=== PATIENT | male | born 1995 | race Caucasian/White ===

== ENCOUNTER 2017-02-04 19:10 | Emergency (ER) | payer OTHER ==
[2017-02-04 19:29] VITALS: BP 119/70
--- NOTE | 2017-02-04 21:32 | Emergency Department Report ---
Entered by KULDEEP ERWIN, acting as scribe for JOSE ECHOLS PA. ED Male HPI - General Chief complaint: Medical Clearance Stated complaint: BLISTERS ON PENIS Time Seen by Provider: 02/04/17 20:11 Source: patient Mode of arrival: Ambulatory Limitations: No Limitations - History of Present Illness Initial comments: 21 year old male with no significant PMHx presents to the ED c/o a STD test today. Patient's partner is being seen in this ED currently for erythematous rashes around shaft of penis, so he wants to get tested. Denies any rashes around shaft of penis, penile discharge, dysuria, urgency, frequency, nausea, vomiting, fever, abdominal pain, and back pain. Reports having unprotected sex with 1 partner. NKDA. NORTH Complaint: other (STD test because partner has erthematous rashes around shaft of penis) -: This afternoon Radiation: none denies other symptoms. denies: discharge, swelling, dysuria, fever, nausea/ vomiting, other (SOB, urgency, frequency, chills, chest pain, back pain, and abdominal pain) - Related Data Sexually active: Yes (1 partner) Allergies Allergy/AdvReac Type Severity Reaction Status Date / Time No Known Allergies Allergy Verified 02/04/17 19:26 ED Review of Systems Comment: All other systems reviewed and negative Constitutional: denies: chills, fever, malaise Eyes: denies: eye pain ENT: denies: ear pain, throat pain, congestion Respiratory: denies: shortness of breath Cardiovascular: denies: chest pain, palpitations Endocrine: no symptoms reported Gastrointestinal: denies: abdominal pain, nausea, vomiting Genitourinary: denies: urgency, dysuria, frequency, discharge, testicular pain, testicular mass Musculoskeletal: denies: back pain Skin: denies: rash, lesions Neurological: denies: headache, weakness ED Past Medical Hx - Past Medical History Previous Medical History?: No - Surgical History Past Surgical History?: No - Social History Smoking Status: Current Every Day Smoker Substance Use Type: Alcohol ED Physical Exam - General Limitations: No Limitations General appearance: alert, in no apparent distress - Head Head exam: Present: atraumatic, normocephalic - Eye Eye exam: Present: normal appearance - ENT ENT exam: Present: normal exam, mucous membranes moist - Neck Neck exam: Present: normal inspection, full ROM. Absent: tenderness, lymphadenopathy - Respiratory Respiratory exam: Present: normal lung sounds bilaterally. Absent: respiratory distress, wheezes, rales, rhonchi, stridor - Cardiovascular Cardiovascular Exam: Present: regular rate, normal rhythm. Absent: systolic murmur, diastolic murmur, rubs, gallop - GI/Abdominal GI/Abdominal exam: Present: soft, normal bowel sounds. Absent: distended, tenderness, guarding, rebound, rigid - exam: Present: normal inspection, other (female residential treatment staff present during exam ). Absent: testicular tenderness, urethral discharge External exam: Present: normal external exam. Absent: erythema, swelling, lesions, lacerations, ecchymosis, bleeding - Extremities Exam Extremities exam: Present: normal inspection, full ROM - Back Exam Back exam: Present: normal inspection, full ROM. Absent: CVA tenderness (R), CVA tenderness (L) - Neurological Exam Neurological exam: Present: alert, oriented X3 - Psychiatric Psychiatric exam: Present: normal affect, normal mood - Skin Skin exam: Present: warm, dry, intact. Absent: rash ED Course Vital Signs 02/04/17 19:26 Temperature 98.3 F Pulse Rate 64 Respiratory 18 Rate Blood Pressure 119/70 O2 Sat by Pulse 99 Oximetry - Reevaluation(s) Reevaluation #1: 02/04/17 21:20 At the time of reevaluation patient was not found to be in his room. ED Disposition Clinical Impression: Normal exam Disposition: LEFT AGAINST MEDICAL ADVICE Is pt being admited?: No Does the pt Need Aspirin: No Condition: Stable Referrals: PRIMARY CARE,MD [Primary Care Provider] - 3-5 Days This documentation as recorded by the RIP perez JASMINE,accurately reflects the service I personally performed and the decisions made by ,JOSE ECHOLS PA.
== END 2017-02-04 21:15 | disposition left against medical advice (07) ==
LOC: ED 19:10
DX: Z11.3 Encounter for screening for infections with a predominantly sexual mode of transmission (principal); F17.200 Nicotine dependence, unspecified, uncomplicated
CPT/HCPCS: 99281